=== PATIENT | female | born 1935 | race Caucasian/White ===

== ENCOUNTER 2022-02-19 15:45 | Inpatient (IN) | payer MEDICARE, BC ==
[~2022-02-19] VITALS: Ht 157.5 cm; Wt 45.5 kg
[2022-02-19 17:06] LABS: BASO # 0.1 K/mm3 (0.0-0.2); BASO % 0.4 % (0.0-2.0); EOS % 0.2 % (0.0-4.0); GRAN % 82.1 % (42.2-75.2); HEMOGLOBIN 13.1 g/dl (12.5-16.0); LYMPH # 1.1 K/mm3 (1.2-3.4); LYMPH % 8.9 % (20.0-51.0); MEAN CELL VOLUME 79 fl (80.0-100.0); MEAN CORPUSCULAR HEMOGLOBIN 28 pg (27-31); MEAN CORPUSCULAR HGB CONC 35 g/dl (33.0-37.0); MEAN PLATELET VOLUME 9.1 fl (7.4-10.4); MONO # 0.9 K/mm3 (0.1-0.6); MONO % 7.1 % (1.7-9.3); PLATELET COUNT 444 K/mm3 (130-400); RED BLOOD COUNT 4.67 M/mm3 (4.10-5.30); REDCELL DISTRIBUTION WIDTH-CV 14.6 % (11.5-14.5)
[2022-02-19 17:21] LABS: ALBUMIN 2.7 gm/dL (3.4-4.8); BILIRUBIN,DIRECT 10.6 mg/dL (0.0-0.5); BILIRUBIN,TOTAL 14.4 mg/dL (0.2-1.2); CREATININE, serum 0.79 mg/dL (0.57-1.11); TOTAL PROTEIN 6.8 gm/dL (6.2-8.1)
[2022-02-19 17:24] LABS: POTASSIUM 2.8 mmol/L (3.5-4.5)
[2022-02-19] MEDS ORDERED: K-DUR 10 MEQ T10 MEQ PO (18:57)
[2022-02-19] MEDS ORDERED: TENORMIN 2525 MG/TAB PO (18:57)
[2022-02-19] MEDS ORDERED: HYDRODIURIL50 MG PO (18:57)
[2022-02-19 19:13] LABS: INR 1.2 (0.8-3.0); PROTHROMBIN TIME 14.1 SECONDS (9.7-12.8)
[2022-02-19 22:27] VITALS: BP 131/56; PULSE 74; TEMP 98.1
--- NOTE | 2022-02-20 01:04 | NUR ---
PATIENT TO ROOM 322. ALERT AND ORIENTED. PUREWICK IN PLACE BUT WAS NOT ON SO PATIENT WAS INCONTINENT. COMPLETE BED CHANGE DONE. MED RX AND ADMISSION DONE. IV TO L FA WITH LR AND POTASSIUM INFUSING. REMAINS ON ROOM AIR. DENIES PAIN BUT STATES SHE IS UNCOMFORTABLE IN HER STOMACH, PRN LIDOCAINE PATCH IN PLACE.
[2022-02-20] MEDS ORDERED: NORCO 325 MG-51 TAB PO (13:12)
[2022-02-20 13:35] LABS: COLLECTION METHOD CLEAN CATCH
[2022-02-20 13:50] LABS: PH 8 (5-8); SQUAMOUS EPITHELIAL None Seen /hpf (0-10); URINE APPEARANCE Clear (CLEAR/HAZY); URINE BACTERIA None Seen /hpf (NONE SEEN); URINE BILIRUBIN Positive (NEGATIVE); URINE BLOOD Negative (NEGATIVE); URINE COLOR Amber (YELLOW); URINE GLUCOSE Negative (NEGATIVE); URINE KETONE Trace (NEGATIVE); URINE LEUKOCYTE ESTERASE Negative (NEGATIVE); URINE NITRATE Negative (NEGATIVE); URINE PROTEIN(semi-quant) Negative (NEGATIVE); URINE RBC 0-2 /hpf (0-2); URINE UROBILINOGEN >=4.0 (NEGATIVE)
--- NOTE | 2022-02-20 15:31 | NUR ---
DISCHARGE INSTRUCTIONS REVIEWED WITH FAMILY.
--- NOTE | 2022-02-20 16:12 | NUR ---
Rex MARRERO informs this Pattern Assembler that Dr. Mcgee has medically cleared patient for discharge with hospice this date. Pattern Assembler met with patient, who is alert and mostly oriented with adult daughter/DPOA-HC Arnav Martino ([phone]), and two adult grandchildren at bedside. Patient gives verbal consent to speak to this Pattern Assembler with family at bedside. Pattern Assembler obtains patient Advanced Directives/DPOA-HC paperwork and places copy to be filed in patient medical record. Per patient, her goal is to "be comfortable" and she indicates she is at peace choosing hospice care, and she wants to receive hospice services at home. She does not know if she will live for her hospital discharge. Patient currently lives in her daughter's guest bedroom, in [place], and her daughter has been providing her increased support and assistance to complete her ADLS and IADLS, the past month, most recently giving her sponge baths, as she does not like to use the shower chair to bathe. She has durable medical equipment at home, including: two walkers, a cane, wheelchair, toilet riser, and grab bars purchased for installment. The home is one level, [facility] steps enty, but patient doesn't go in and out of the home and avoids the stairwell. Per daughter, "I assist with everything," including meal preparation, laundry, bedding, housekeeping. Patient sees Dr. Ivelisse Garrido for primary care and obtains medications with no difficulty at [facility] in [place]. Patient has seen her [facility] today, and the [facility] provides patient and family support. Daughter and patient review a list of hospice care choices and determine a primary preference for [facility] in [place] and a secondary preference for [facility] in [place]. They do not know if they want to pursue in-home hospice or hospice house. Daughter states she is struggling emotionally, feeling "numb" and overwhelmed with patient care. She has been nominated as "point" for the family by her sibling who is not involved in care, and this is very overwhelming. Daughter states she has struggled as an adopted child for years as patient is "controlling" emotionally. Daughter recently came into contact with her mother and was establishing a "friendship" when mother 3-4 weeks ago. Daughter reports having patient move in with her brought up "PTSD." Daughter was seeing a therapist through her contract employee's [employer] program, but she has now contracted with a new agency. She is open to recommendations to seek her own support, and educated that hospice care also provides caregiver and family support. She states she knows she is "strong enough" from her past therapy to care for patient at home until hospice services can be initiated at home. She accepts handouts with information for both in-home and hospice house. She also accepts a list of mental health care providers, both private and community, to seek new support since her biological mother has passed and her adoptive mother is now requiring hospice care. She believes she can access therapy through her spouse's healthcare coverage. Daughter and patient decide they want the referral placed today, so that when they discharge they will already have initiated services. Pattern Assembler attempted contact to [facility] and unable to be connected. Pattern Assembler contacted [facility] and packaging sales representative who informs they cannot take a referral until Monday, but is open to a referral packet sent. Pattern Assembler updates Rex MARRERO, and faxed referral to [facility] sales representative at patient and daughter's request. Patient and daughter awaiting further information regarding discharge plan, and thank this Pattern Assembler for services, accept case management phone contact as needed. *Discharge plan: to home with supportive family and in-home hospice referral placed for Monday, 02/22, follow up*
--- NOTE | 2022-02-20 16:20 | NUR ---
PT DISCHARGE HOME WITH HOSPICE.
== END 2022-02-20 16:15 | disposition hospice, home (50) | DRG 435 ==
LOC: COL.ER 15:45 → SURG 18:37
PROVIDERS: Emergency Medicine; ADMIT Internal Medicine
DX: C78.7 Secondary malignant neoplasm of liver and intrahepatic bile duct (principal); K83.1 Obstruction of bile duct; E87.1 Hypo-osmolality and hyponatremia; E80.6 Other disorders of bilirubin metabolism; Z66 Do not resuscitate; E87.6 Hypokalemia; Z51.5 Encounter for palliative care; E86.0 Dehydration; I10 Essential (primary) hypertension; D72.829 Elevated white blood cell count, unspecified; D75.839 Thrombocytosis, unspecified; E88.09 Other disorders of plasma-protein metabolism, not elsewhere classified; E83.42 Hypomagnesemia; E87.8 Other disorders of electrolyte and fluid balance, not elsewhere classified; R73.9 Hyperglycemia, unspecified; K86.89 Other specified diseases of pancreas; Z85.3 Personal history of malignant neoplasm of breast; Z90.710 Acquired absence of both cervix and uterus; Z23 Encounter for immunization
CPT/HCPCS: 99239; J3475; J3480; J7120; Q9967